=== PATIENT | female | born 1995 | race Caucasian/White ===

== ENCOUNTER → 2017-03-05 23:58 | Observation (INO) ==
--- NOTE | 2017-03-05 23:22 | OB/GYN Progress Note ---
Date of Encounter: 03/05/17 Time of Encounter: 23:19 - Assessment and Plan (1) Vaginal discharge during in second trimester Current Visit: Yes Status: Acute Speculum exam shows thick white discharge vaginally, no fluid leaking from cervical os with cough, nitrazine and ferning negative. (2) 24 weeks gestation of Current Visit: Yes Status: Acute tracing appropriate for gestational age Discharge home with instructions on when to return to triage for evaluation Subjective - Subjective Interval history: 21-year-old at 24+6 weeks presented to [facility] with complaints of a gush of fluid earlier this evening. Patient transferred here from [facility] emergency department. Patient states she went to the restroom at about 5 minutes later had a gush of fluid that soaked her underwear afterwards she says she stated she felt like a trickle continued for the next few minutes after. Patient states she has had no leaking since that time no leaking at [facility] during transport or here currently in triage. Patient reports good movement denies vaginal bleeding, contractions, states last sexual intercourse was several weeks ago. No other complaints Antepartum ROS: loss of fluid, no vaginal bleeding, no movement normal, no contractions Objective - Exam FHR: auscultation normal (Baseline 150) Auscultation: bilateral: normal Abdomen: Present: soft, gravid Cervical dilation: Visually closed on speculum exam
== END | disposition home or self-care (01) ==
LOC: 1NENULAB
PROVIDERS: ADMIT Advanced Practice Midwife; ATTEND Advanced Practice Midwife

== ENCOUNTER 2017-06-20 01:06 | Inpatient (IN) ==
[2017-06-20] MEDS ORDERED: Ringers Solution, Lactated 1,000 ML IVC SCH (01:30)
[2017-06-20] MEDS ORDERED: Naloxone 0.4 MG/ML INJ IVP PRN (01:30)
[2017-06-20] MEDS ORDERED: Ondansetron 4 MG/2 ML VIAL IVP PRN (01:30)
[2017-06-20] MEDS ORDERED: Famotidine 20 MG/2 ML VIAL IVP PRN (01:30)
--- NOTE | 2017-06-20 02:07 | OB/GYN History & Physical ---
Date of Encounter: 06/20/17 Time of Encounter: 02:04 Assessment and Plan (1) 40 weeks gestation of Current visit: Yes Status: Acute admitted for delivery (2) Rh negative status during in third trimester Current visit: Yes Status: Acute Rhogam evaluation after delivery (3) Spontaneous rupture of membranes Current visit: Yes Status: Acute Admit for delivery GBS: Negative History of Present Illness Chief complaint: SROM HPI: Ms. Rodrigez is a 21 year old female at 40w0d presents to labor and delivery with c/o spontaneous rupture of membranes around 0000. Patient reports fluid to be clear. Patient reports occasional contractions and positive movement. Blood type: O Negative, Rubella: immune, Hep B: Negative, GBS: Negative. Past Med Surg Social Fam HX - Past Medical History Source: patient Medical history: asthma Psychiatric history: anxiety - Past Surgical History Surgical History: other (T&A) - Social History Smoking Status: Never smoker Smokeless Tobacco Status: No Alcohol use: none Drug use: none Activity Level: Independent ambulation Recent Out of Country Travel Within the Last 8 Weeks: No Exposure or Possible Exposure to Illness During Travel: No - Family History Mother Age: 38 Living Status: Still Living Hx Family Cardiac Disorders: No Hx Family Respiratory Disorders: No Hx Family Cancer: No Hx Family GI Disorders: No Hx Family Endocrine Disorder: No Hx Family Neuromuscular Disorders: No Hx Family Neurologic Disorders: No Hx Family HEENT Disorders: No Hx Family Autoimmune Disorders: No Obstetrical History - Pregnancies : 2 Para: 0 Term: 0 : 0 Ab's: 1 Livin Medications and Allergies No Known Home Drugs 06/20/17 [History] Allergies No Known Allergies Allergy (Verified 06/20/17 01:16) Review of System OB - Constitutional Constitutional ROS IM: no fever(s), no headache(s) - Cardiovascular Cardiovascular: no lightheadedness, no palpitations, no syncope - Respiratory Respiratory: no dyspnea - Gastrointestinal Gastrointestinal: no abdominal pain, no constipation, no cramping, no diarrhea, no heartburn, no nausea, no vomiting - Genitourinary Genitourinary: no abnormal vaginal bleeding, no dysuria, no flank pain, no urinary frequency Exam - Constitutional Constitutional: well developed, well nourished, no acute distress, average body habitus - HEENT HEENT: Normocephaly, Mucus Membranes Moist - Neck Neck exam: full ROM, supple - Lungs Respiratory exam: CTAB - Cardiovascular Cardiovascular exam: RRR, +S1, +S2 - Abdomen Abdomen: Present: bowel sounds normal, gravid, non tender - Extremities Extremities exam: full ROM, normal inspection Deep Tendon Reflex Grade: 2+ Normal - Cervix Dilation: 1 Effacement: 50 Station: -3 - Uterus Uterus exam: Present: normal size, normal contour - Anus/Rectum Anus/Rectum: Present: normal perianal skin (135 bpm moderate variability +15x15 accels no decels noted. Contractions 4-5 min apart.) Results All other labs normal. - VTE Reasons for not Prescribing Prophylaxis: Treatment not Indicated - Low risk for VTE
[2017-06-20 02:40] LABS: Basophils % 0.2 %; Eosinophils % 0.4 %; Hematocrit 34.6 % (35.3-44.9); Immature Granulocytes % 0.3 % (0-4); Immature Platelets 6.6 % (1.1-6.1); Lymphocytes # 2.5 K/mcL (0.6-4.6); Lymphocytes % 24.9 %; Mean Corpuscular HGB Conc 31.8 g/dL (31.6-35.5); Mean Corpuscular Hemoglobin 25.1 pg (28.0-33.3); Mean Platelet Volume 11.1 fL (9.4-12.4); Monocytes # 1.1 K/mcL (0.0-1.3); Monocytes % 11.2 %; Neutrophils # 6.2 K/mcL (1.6-8.9); Platelet Count 233 K/mcL (140-400); Red Blood Count 4.38 M/mcL (3.82-4.97); Red Cell Distribution Width 13.7 % (11.5-14.5)
--- NOTE | 2017-06-20 02:40 | Anesthesia Evaluation PreOp ---
Date of Encounter: 06/20/17 Time of Encounter: 02:10 - Past History Planned Operation: AJAY Cardiac History: Denies any Significant Hx Pulmonary History: Asthma PUBLIC INFORMATION COORDINATOR History: Denies Any Significant HX Other Medical History: Denies Any Significant HX Anesthesia History: No Prior Anesthetic Complications, Past Anesthesia (T&A without complication) : Yes Alcohol Use: none Drug use: none Medications and Allergies No Known Home Drugs 06/20/17 [History] Allergies No Known Allergies Allergy (Verified 06/20/17 01:16) - Meds/Allergy Pre-op Review Medications Reviewed: Yes Allergies Reviewed: Yes Beta Blockers on Current Med List: No Anesthesia Exam BP 127/78 P 71 R 16 T 97.2 Height: 5'9" Weight: 81kg NPO (# of Hours): 4 Pain Scale: 3 Pain Scale Used: Numeric (1 - 10) - HEENT Pupil (Motor): Pupils equal Mallampati: II Teeth: Normal Oral Opening: Greater than 3 - PUBLIC INFORMATION COORDINATOR PUBLIC INFORMATION COORDINATOR Motor: Normal RUE, Normal LUE, Normal RLE, Normal LLE, Normal Face PUBLIC INFORMATION COORDINATOR Sensory: Normal: RUE, LUE, RLE, LLE, Face - Cardiac Rhythm: Regular Murmur: None JVD: No Carotid Bruit: No - Pulmonary Breath Sounds: bilateral Clear Respiratory Effort: Symmetrical Anesthesia Assess/Plan ASA Score: 2 Modified Hodgen Scale for Level of Consciousness: Cooperative, oriented, and tranquil Anesthetic Plan: Regional Autologous Blood: No Monitoring Plan: Standard Monitors Recovery Plan: Other
[2017-06-20] MEDS ORDERED: miSOPROStol 100 MCG TABLET PO STA ×2 (03:51→08:30)
[2017-06-20] MEDS ORDERED: Oxytocin 20 units/ LR 1000 mL 20 UNIT/1,000 ML BAG IVC SCH (12:00)
--- NOTE | 2017-06-20 12:03 | OB Labor Progress Note ---
Date of Encounter: 06/20/17 Time of Encounter: 12:02 Labor Progress Note - Subjective Subjective: Pt with mild discomfort with contractions. - Cervix Cervix: 1cm - Heart Tones Heart Tones: Category I - [place]: irregular - Plan Plan: Start pitocin for augmentation of labor. Epidural when requested. Anticicpate .
[2017-06-20] MEDS: *HR* Nalbuphine 20 MG/ML AMPUL IVP PRN ×2 (15:17→19:44)
--- NOTE | 2017-06-20 17:07 | OB Labor Progress Note ---
Date of Encounter: 06/20/17 Time of Encounter: 17:05 Labor Progress Note - Subjective Subjective: Pt reports pain is tolerable with Nubain. - Cervix Cervix: 2/80/-1 - Heart Tones Heart Tones: Category I - Interventions Interventions: IUPC placed - Plan Plan: Continue to titrate pitocin for adequate contractions. Epidural when requested. Anticipate .
--- NOTE | 2017-06-20 19:51 | OB Labor Progress Note ---
Date of Encounter: 06/20/17 Time of Encounter: 19:47 Labor Progress Note - Subjective Subjective: Pt requesting more Nubain for pain. - Cervix Cervix: 2/90/-1 - Heart Tones Heart Tones: Category I - [place]: Q 1-2 - Plan Plan: delivery discussed at length. Pt desires to continue working for a vaginal delivery at this time. Pitocin decreased by 1/2 to 8mu's/min. Pt to reposition with peanut ball. Will recheck in [address] Paz agreeable with this plan.
[2017-06-20] MEDS ORDERED: Ampicillin 2 GM in 0.9 % Sodium Chloride Mini Bag 100 ML IVPB ONE (20:05)
[2017-06-20] MEDS ORDERED: Metoclopramide 10 MG/2 ML VIAL IVP PRN (20:44)
[2017-06-20] MEDS ORDERED: ceFAZolin 2,000 MG in D5% in Water (Mini-Bag+) 100 ML IVPB ONE (20:45)
[2017-06-20] MEDS ORDERED: EPHEDrine 50 MG/ML VIAL ONE (20:59)
[2017-06-20] MEDS ORDERED: *HR* Morphine Sulfate/PF 5 MG/10 ML AMPUL ONE (20:59)
[2017-06-20] MEDS ORDERED: *HR* Oxytocin 10 UNIT/ML VIAL IM ONE ×2 (21:15→21:53)
[2017-06-20] MEDS ORDERED: Ringers Solution, Lactated 1,000 ML ONE (21:53)
--- NOTE | 2017-06-20 21:59 | Anesthesia Procedures ---
Date of Encounter: 06/20/17 Time of Encounter: 21:10 Procedures: Anesthesia - Epidural/Spinal Patient ID/Chart reviewed: Yes Patient examined: Yes OB Eval: Gestational age: 37 OB Eval: : 1 OB Eval: Hx Para: 0 OB Eval: Dilated at (cm): 3 OB Eval: Contractions: Non-stressed pattern Consent Obtained: Yes Supplemental Oxygen: None/Room Air Site Prep: Aseptic Technique, Sterile prep and drape, Povidone-Iodine 1% Patient position: upright Local Anesthetic: Lidocaine 1% Amount of Local Anesthetic used: 5 Interspace Used: L4-L5 Loss of Resistance (LOGAN): Yes Blood: No CSF: No Paresthesia: No Spinal Needle Gauge: 25 Spinal Dose: 13.5 mg Marcaine Procedure: Patient sitting,sterile prep and drape with betadine midline L4-5 patient tolerated procedure well
[2017-06-20] MEDS ORDERED: *HR* HYDROmorphone (PF) 1 MG/ML SYRINGE IVP PRN (22:02)
--- NOTE | 2017-06-20 22:39 | OB/GYN Procedure Note ---
Section - Date of procedure: 06/20/17 Preop diagnosis: arrest of descent Post-op diagnosis: same Procedure: section, primary low transverse Surgeon: Salty Paz Estimated blood loss (cc): 700 Anesthesia Type: Epidural section complications: none Disposition: PACU Specimens: Cord blood - (s) Infant A Delivery Date: 06/20/17 Infant Delivery Time: 21:38 Presentation: vertex Position: ROP Gender: Male Viability: Viable Pounds: 8 Ounces: 1 at 1 minute: 9 at 5 minutes: 9 Shoulder Dystocia: not encountered Specimens collected: cord blood Placenta: spontaneous Cord: nuchal cord, 3 umbilical vessels - Narrative Narrative: Patient is a 21-year-old 1 para 0 female presented early this morning sodium spontaneous rupture membranes for arrival she was 1 cm dilated. Upon arrival she was having irregular contractions and she was augmented with Cytotec and Pitocin. She never progressed past 2 cm dilation and after discussed with patient options she desires to proceed with primary section for failure to progress. She was aware of operative risks and signed appropriate consent Description procedure: Patient was taken operating room where epidural was dosed. Once adequate anesthesia was determined bladder was drained of clear urine with Melgar catheter. Scalpel was used to make pain still skin incision was sharply taken down the rectus fascia. Fascial incision was extended bilaterally rectus muscles divided and peritoneum was entered bluntly bladder blade was placed and bladder flap was developed and lower uterine segment. Scalpel was used to make a low transverse uterine incision which was extended bluntly bilaterally membranes ruptured clear fluid. Infant was delivered from vertex presentation oropharynx and nasopharynx were suctioned of clear fluid was immediately vigorous and Apgars determined we 9 at 1 minute and 9 at 5 minutes. Weight was later determined be 8 pounds 1 ounce. Infant was handed nurse personnel who were in attendance. Placenta was delivered manually without difficulty. Uterine cavity was massaged free of all residual tissue. Uterus was then closed 0 Vicryl running lock stitch second imbricating layer was taken with first obtain hemostasis. There is some oozing from the right aspect of the incision several [id number] stitches placed obtain hemostasis. Irrigation was performed hemostasis was ensured excess blood was suctioned out of the abdominal cavity. Fascia was closed 0 Vicryl in running manner. Once the fascia was closed again irrigation was performed hemostasis was ensured. Skin edges reapproximated with 4-0 Vicryl. All sponge and instruments counts are correct patient was taken recovery in good condition.
[2017-06-21] MEDS ORDERED: Ampicillin 1,000 MG in 0.9 % Sodium Chloride Mini Bag 100 ML IVPB SCH
[2017-06-21] MEDS ORDERED: Oxytocin 20 units/ LR 1000 mL 20 UNIT/1,000 ML BAG IVC SCH (01:02)
[2017-06-21] MEDS ORDERED: Naloxone 0.4 MG/ML INJ IVP PRN (01:02)
[2017-06-21] MEDS ORDERED: Ondansetron 4 MG/2 ML VIAL IVP PRN (01:02)
[2017-06-21] MEDS ORDERED: Sennosides 8.6 MG TABLET PO PRN (01:02)
[2017-06-21] MEDS ORDERED: Metoclopramide 10 MG/2 ML VIAL IVP PRN (01:02)
[2017-06-21] MEDS ORDERED: Ringers Solution, Lactated 1,000 ML IVC SCH (01:02)
[2017-06-21] MEDS ORDERED: *HR* OxyCODONE/APAP 5/325 TABLET PO PRN (01:02)
[2017-06-21] MEDS ORDERED: Rho Immune Globulin 1,500 UNIT SYRINGE IM ONE (01:02)
[2017-06-21] MEDS ORDERED: Simethicone 80 MG TAB.CHEW PO PRN (01:02)
[2017-06-21] MEDS: Ibuprofen 600 MG TABLET PO PRN ×3 (06:42→21:08)
[2017-06-21 08:28] LABS: Hematocrit 29.9 % (35.3-44.9); Immature Granulocytes % 0.3 % (0-4); Lymphocytes % 17.5 %; Mean Corpuscular HGB Conc 31.4 g/dL (31.6-35.5); Mean Corpuscular Hemoglobin 25.3 pg (28.0-33.3); Mean Corpuscular Volume 80.6 fL (83.0-100.0); Mean Platelet Volume 11.6 fL (9.4-12.4); Monocytes % 12.7 %; Platelet Count 188 K/mcL (140-400); Red Blood Count 3.71 M/mcL (3.82-4.97); Segmented Neutrophils % 69.2 %
[2017-06-21 08:29] LABS: Basophils % 0.2 %; Eosinophils % 0.1 %; Lymphocytes # 1.8 K/mcL (0.6-4.6); Monocytes # 1.3 K/mcL (0.0-1.3); Neutrophils # 7.3 K/mcL (1.6-8.9)
[2017-06-21 08:31] LABS: Hemoglobin 9.4 g/dL (11.5-15.4)
--- NOTE | 2017-06-21 10:04 | OB/GYN Progress Note ---
Date of Encounter: 06/21/17 Time of Encounter: 10:02 - Assessment and Plan (1) delivery delivered Current Visit: Yes Status: Acute Pt meeting POD 1 milestones. Pain well managed on po pain medication. Continue current management. Subjective - Subjective Patient reports: appetite normal (hollins in place. ), pain well controlled, ambulating normally : doing well Objective - Vital Signs Latest vital signs: Vital Signs Temp Pulse Resp BP Pulse Ox 06/21/17 08:58 98.0 F 91 16 112/77 97 06/21/17 04:05 97.8 F 71 16 107/74 99 06/21/17 04:00 16 06/21/17 03:05 97.7 F 83 16 109/72 97 06/21/17 02:00 98.0 F 86 16 107/67 97 06/21/17 01:30 97.6 F 72 16 113/73 97 06/21/17 01:00 97.9 F 76 14 110/69 97 Intake and Output 06/20/17 06/21/17 06/21/17 23:59 07:59 15:59 Intake Total 700 / 700 Output Total 850 / 850 Balance -150 / -150 Intake: Intake, Autotransfusion 700 / 700 Amount Output: Estimated Blood Loss 700 / 700 Catheter 150 / 150 Other: Weight 74.2 kg Patient Weight 06/21/17 23:59 Weight 74.2 kg - Exam Lungs: bilateral: normal Chest: Normal S1, Normal S2 Extremities: Present: normal Abdomen: Present: normal appearance, soft Incision: Present: dressed Uterus: Present: normal Comments: U - Labs Labs: Laboratory Results - last 24 hr 06/21/17 06/21/17 07:23 07:23 WBC 10.5 RBC 3.71 L Hgb 9.4 L D Hct 29.9 L MCV 80.6 L MCH 25.3 L MCHC 31.4 L RDW 14.0 Plt Count 188 MPV 11.6 Immature Gran % 0.3 Seg Neutrophils % 69.2 Lymphocytes % 17.5 Monocytes % 12.7 Eosinophils % 0.1 Basophils % 0.2 Neutrophils # 7.3 Lymphocytes # 1.8 Monocytes # 1.3 Eosinophils # 0.0 Basophils # 0.0 Baby's Blood Type O RH POSITIVE Mother's Blood Type O RH NEGATIVE Rhogam Indicated YES
[2017-06-21] MEDS: Prenatal Vit/FA 1 EACH TABLET PO SCH (10:17)
[2017-06-21] MEDS: *HR* HYDROcodone/Acet 5/325 mg TABLET PO PRN (17:47)
[2017-06-22] MEDS: *HR* HYDROcodone/Acet 5/325 mg TABLET PO PRN ×3 (00:42→10:00)
[2017-06-22] MEDS: Ibuprofen 600 MG TABLET PO PRN (04:48)
[2017-06-22] MEDS: Prenatal Vit/FA 1 EACH TABLET PO SCH (07:49)
--- NOTE | 2017-06-22 08:16 | Discharge Summary ---
Date of Encounter: 06/22/17 Time of Encounter: 08:08 - Discharge Diagnosis (1) delivery delivered Priority: Primary Status: Acute - Discharge Medications Prescriptions: HYDROcodone/Acet 5/325 mg [[place] 5-325 mg] 1 tab PO Q4HR PRN #24 tab PRN Reason: pain greater than 4 Azithromycin [Zithromax] 500 mg PO DAILY #8 tab cephALEXin [Keflex] 500 mg PO DAILY #4 cap Docusate [Colace] 100 mg PO BID #10 Ferrous Sulfate 325 mg PO DAILY #30 tab Home Medications: Azithromycin [Zithromax] 500 mg PO DAILY #8 tab 06/22/17 [Rx] Docusate [Colace] 100 mg PO BID #10 06/22/17 [Rx] Ferrous Sulfate 325 mg PO DAILY #30 tab 06/22/17 [Rx] HYDROcodone/Acet 5/325 mg [[place] 5-325 mg] 1 tab PO Q4HR PRN #24 tab 06/22/17 [ Rx] cephALEXin [Keflex] 500 mg PO DAILY #4 cap 06/22/17 [Rx] Allergies/Adverse Reactions: Allergies acetaminophen [From Percocet] Adverse Reaction (Mild, Verified 06/22/17 00:48) See Comments patient nearly passed out, also had acute blood loss Oxycodone [From Percocet] Adverse Reaction (Mild, Verified 06/22/17 00:48) See Comments patient nearly passed out, also had acute blood loss Data Procedures and tests throughout hospitalization: Laboratory Tests 06/20/17 06/21/17 06/21/17 02:30 07:23 07:23 WBC 9.9 10.5 RBC 4.38 3.71 L Hgb 11.0 L 9.4 L D Hct 34.6 L 29.9 L MCV 79.0 L 80.6 L MCH 25.1 L 25.3 L MCHC 31.8 31.4 L RDW 13.7 14.0 Plt Count 233 188 MPV 11.1 11.6 Immature Gran % 0.3 0.3 Seg Neutrophils % 63.0 69.2 Lymphocytes % 24.9 17.5 Monocytes % 11.2 12.7 Eosinophils % 0.4 0.1 Basophils % 0.2 0.2 Neutrophils # 6.2 7.3 Lymphocytes # 2.5 1.8 Monocytes # 1.1 1.3 Eosinophils # 0.0 0.0 Basophils # 0.0 0.0 Immature Plt Fraction 6.6 H Screen NEGATIVE Baby's Blood Type O RH POSITIVE Mother's Blood Type O RH NEGATIVE Rhogam Indicated YES Rhogam Req for Mother 1 Labs on day of discharge: Labs from last 24 hours 06/21/17 06/21/17 07:23 07:23 WBC 10.5 RBC 3.71 L Hgb 9.4 L D Hct 29.9 L MCV 80.6 L MCH 25.3 L MCHC 31.4 L RDW 14.0 Plt Count 188 MPV 11.6 Immature Gran % 0.3 Seg Neutrophils % 69.2 Lymphocytes % 17.5 Monocytes % 12.7 Eosinophils % 0.1 Basophils % 0.2 Neutrophils # 7.3 Lymphocytes # 1.8 Monocytes # 1.3 Eosinophils # 0.0 Basophils # 0.0 Screen NEGATIVE Baby's Blood Type O RH POSITIVE Mother's Blood Type O RH NEGATIVE Rhogam Indicated YES Rhogam Req for Mother 1 Date of admission: 06/20/17 01:06 Primary care physician: Alberto Dickey MD Discharging clinician: Carly Moore Anticipated date of discharge: 06/22/17 - Patient Status Disposition: Home, Self-Care Condition: Good Functional capacity at discharge: independent ambulation Overall status at discharge: patient is progressing back to baseline - Discharge Instructions Follow Up With: Alberto Dickey MD [Primary Care Provider] - - Diet and Activity Diet: regular diet Hospital Course Reason for admission: ROM Delivery: section Episiotomy: none Laceration: none Other procedures: none complications: none Discharge diagnosis: IUP at term delivered [place] baby: male Hospital course: Amy Rodrigez is a 21 yo admitted for SROM. She had a section due to failure to progress. - Date of procedure: 06/20/17 Preop diagnosis: arrest of descent Post-op diagnosis: same Procedure: section, primary low transverse Surgeon: Salty Paz Estimated blood loss (cc): 700 Anesthesia Type: Epidural section complications: none Disposition: PACU Specimens: Cord blood - (s) Infant A Delivery Date: 06/20/17 Delivery Time: 21:38 Presentation: vertex Position: ROP Gender: Male Viability: Viable Pounds: 8 Ounces: 1 at 1 minute: 9 at 5 minutes: 9 Shoulder Dystocia: not encountered Specimens collected: cord blood Placenta: spontaneous Cord: nuchal cord, 3 umbilical vessels Time Attestation: Total time spent providing and/or coordinating discharge services: - VTE Reasons for not Prescribing Prophylaxis: Treatment not Indicated - Low risk for VTE Documentation of Mechanical Device: Intermittent pneumatic compression device Exam - Constitutional Vitals: Temp Pulse Resp BP Pulse Ox 97.4 F L 80 16 110/74 100 06/21/17 19:45 06/21/17 19:45 06/21/17 21:55 06/21/17 19:45 06/21/17 19:45 General appearance IM: A&O X 3, answers questions appropriately - Respiratory Respiratory exam: Present: CTAB - Cardiovascular Cardiovascular exam IM: Present: RRR, +S1, +S2 - GI/Abdominal GI/Abdominal exam IM: normal bowel sounds, soft Incision: intact, other (dried, small amount of dried blood on steri strips on right side of wound) - Uterus Position: 2 Fingers Below Umbilicus, Midline - Extremities Exam Extremities exam IM: Present: normal inspection, warm
[2017-06-22 08:26] VITALS: BP 107/72
[2017-06-22] MEDS ORDERED: cephALEXin 500 MG CAPSULE PO SCH (09:00)
[2017-06-22] MEDS ORDERED: Azithromycin 250 MG TABLET PO SCH (09:00)
== END 2017-06-22 14:00 | disposition home or self-care (01) | DRG 540 ==
LOC: 1NENULAB → OBSVTOIN 01:06 → 1NENUOBS 06-21 01:22
PROVIDERS: ADMIT Advanced Practice Midwife; ATTEND Advanced Practice Midwife